=== PATIENT | male | born 2000 | race Caucasian/White ===

== ENCOUNTER 2020-10-11 10:37 | Outpatient (CLI) | payer OTHER, SELFPAY | END 2020-10-11 10:38 | disposition home or self-care (01) | LOC: CHSCOVIDVC 10:38 | DX: Z23 Encounter for immunization (principal) | CPT/HCPCS: 0011A; 91301 ==

== ENCOUNTER 2020-11-08 10:33 | Outpatient (CLI) | payer OTHER, SELFPAY | END 2020-11-08 10:34 | disposition home or self-care (01) | LOC: CHSCOVIDVC 10:33 | DX: Z23 Encounter for immunization (principal) | CPT/HCPCS: 0012A; 91301 ==